=== PATIENT | female | born 1950 | race Caucasian/White ===

== ENCOUNTER 2016-12-12 00:03 | Emergency (ER) | payer MEDICARE, BC ==
--- NOTE | 2016-12-12 00:21 | Emergency Department Record ---
History of Present Illness - General Chief Complaint: Arrythmia/Palpitations Stated Complaint: afib Source: Patient Mode of Arrival: Ambulatory Limitations: No limitations - History of Present Illness Initial Comments: 66 yo female presents to ED with a CC of palpitations and irregular heart beat symptoms. Patient reports a history of atrial fibrillation s/p cardioversions x 12 and ablation x [address] Madrigal. Patient reports mild SOB symptoms, denies chest pain or discomfort. Patient also reports that she has been taking Xarelto regularly for 3 years. MD Complaint: Atrial fibrillation Onset/Timin -: Minutes(s) Context: Occurred during rest Arrythmia History: Atrial fibrillation, History of ablation, History of electrical cardioversion, On anti-coagulants Associated Symptoms: Shortness of breath - Related Data Home Medications Medication Instructions Recorded Confirmed Last Taken Biotin 1,000 mcg PO DAILY 12/12/16 12/12/16 12/12/16 Cholecalciferol (Vitamin D3) 1,000 unit PO DAILY 12/12/16 12/12/16 12/12/16 [Vitamin D3] Folic Acid 0.4 mg PO DAILY 12/12/16 12/12/16 12/12/16 Lovastatin 10 mg PO DAILY 12/12/16 12/12/16 12/12/16 Magnesium Oxide [Magnesium] 400 mcg PO DAILY 12/12/16 12/12/16 12/12/16 [place]-3 Fatty Acids [[place]-3] 500 mg PO DAILY 12/12/16 12/12/16 12/12/16 Rivaroxaban [Xarelto] 2.5 mg PO DAILY 12/12/16 12/12/16 12/12/16 Spironolactone [Aldactone] 25 mg PO DAILY 12/12/16 12/12/16 12/12/16 Allergies Allergy/AdvReac Type Severity Reaction Status Date / Time guaifenesin [From Entex LA] Allergy PT UNSURE Verified 12/12/16 00:06 OF REACTION phenylephrine [From Entex LA] Allergy PT UNSURE Verified 12/12/16 00:06 OF REACTION phenylpropanolamine Allergy PT UNSURE Verified 12/12/16 00:06 [From Entex LA] OF REACTION sulfamethoxazole Allergy PT UNSURE Verified 12/12/16 00:06 [From Bactrim] OF REACTION trimethoprim [From Bactrim] Allergy PT UNSURE Verified 12/12/16 00:06 OF REACTION Travel Screening - Travel/Exposure Within Last 30 Days Have you traveled within the last 30 days?: No - Travel Symptoms Symptom Screening: None Review of Systems Constitutional: Denies: Chills, Fever, Malaise, Night sweats Eyes: Denies: Eye discharge, Eye pain ENT: Denies: Congestion, Ear pain, Epistaxis Respiratory: Reports: Dyspnea. Denies: Cough Cardiovascular: Reports: Palpitations. Denies: Chest pain, Dyspnea on exertion Endocrine: Denies: Fatigue, Heat or cold intolerance Gastrointestinal: Denies: Abdominal pain, Nausea, Vomiting Genitourinary: Denies: Incontinence, Retention Musculoskeletal: Denies: Arthralgia, Back pain Skin: Denies: Bruising, Change in color Neurological: Denies: Abnormal gait, Confusion, Headache, Tingling, Tremors Psychiatric: Denies: Anxiety Hematological/Lymphatic: Reports: Easy bleeding. Denies: Anemia, Blood Clots Past Medical History - SOCIAL HISTORY Smoking Status: Former smoker - RESPIRATORY Hx Respiratory Disorders: No - CARDIOVASCULAR Hx Cardio Disorders: Yes Hx Cardiac Cath: Yes Hx Irregular Heartbeat: Yes (A-fib) Hx Pacemaker/Defib: No Comment:: Cardiology-Dr Bronson - NEURO Hx Neuro Disorders: No - GI Hx GI Disorders: Yes Hx Reflux: Yes - Hx Genitourinary Disorders: No - ENDOCRINE Hx Endocrine Disorders: No - MUSCULOSKELETAL Hx Musculoskeletal Disorders: No - PSYCH Hx Psych Problems: No - HEMATOLOGY/ONCOLOGY Hx Hematology/Oncology Disorders: No Family Medical History Any Significant Family History?: Yes Hx Cancer: Mother *Cancer Comment: Colon Hx Heart Disease: Father Hx HTN: Mother Physical Exam - General General Appearance: Alert, Oriented x3, Cooperative, Mild distress Limitations: No limitations - Head Head exam: Atraumatic, Normocephalic, Normal inspection Head exam detail: negative: Abrasion, Contusion, Bolanos's sign, General tenderness, Hematoma, Laceration - Eye Eye exam: Normal appearance. negative: Conjunctival injection, Periorbital swelling, Periorbital tenderness, Scleral icterus - ENT Ear exam: negative: Auricular hematoma, Auricular trauma Nasal Exam: negative: Active bleeding, Discharge, Dried blood, Foreign body Mouth exam: negative: Drooling, Laceration, Muffled voice, Tongue elevation - Neck Neck exam: Normal inspection. negative: Meningismus, Tenderness - Respiratory Respiratory exam: Normal lung sounds bilaterally. negative: Respiratory distress, Rhonchi, Stridor, Wheezes - Cardiovascular Cardiovascular Exam: Normal heart sounds, Irregular rhythm - GI/Abdominal GI/Abdominal exam: Soft. negative: Rebound, Rigid, Tenderness - Rectal Rectal exam: Deferred - exam: Deferred - Extremities Extremities exam: Normal inspection. negative: Calf tenderness, Pedal edema, Tenderness - Back Back exam: Denies: CVA tenderness (R), CVA tenderness (L) - Neurological Neurological exam: Alert, Normal gait, Oriented X3 - Psychiatric Psychiatric exam: Normal affect, Normal mood - Skin Skin exam: Normal color. negative: Abrasion Type of lesion: negative: abrasion Course Vital Signs 12/12/16 00:07 Temperature 97.5 F L Pulse Rate 77 Respiratory 20 Rate Blood Pressure 185/100 Pulse Ox 100 - Reevaluation(s) Reevaluation #1: 12/12/16 00:20 EKG: Atrial fibrillation 73 Normal axis, irregular R-R intervals ST depression I, AVL, V5-V6 Reevaluation #2: 12/12/16 01:04 Labs reviewed, INR 1.42, labs are otherwise grossly unremarkable for an acute process. [place] [phone] call contacted for consultation. Reevaluation #3: 12/12/16 01:11 Case was discussed with Dr. Arroyo, will accept transfer for further evaluation. Reevaluation #4: 12/12/16 01:56 Portable CXR: Nothing acute Medical Decision Making - Lab Data Result diagrams: 12/12/16 00:10 12/12/16 00:10 Disposition Disposition: Transfer Clinical Impression: Atrial fibrillation Qualifiers: Atrial fibrillation type: paroxysmal Qualified Code(s): I48.0 - Paroxysmal atrial fibrillation Disposition: Acute Care Hospital Transfer Transfer To: [facility] Reason For Transfer: Atrial Fibrillation Accepting Physician: Dina Time Discussed w/Accepting Physician: 01:12 Condition: (2) Stable Forms: Patient Portal Access Time of Disposition: 01:12 Quality - Quality Measures Quality Measures: N/A - Blood Pressure Screening Blood Pressure Classification: Hypertensive Reading Systolic Measurement: 185 Diastolic Measurement: 100 Screening for High Blood Pressure: < First Hypertensive BP, F/U Documented > [ G8950] First Hypertensive Follow-up Interventions: Referral to alternative/primary care provider.
[2016-12-12 00:25] LABS: BASO % 0.8 % (0-6); EOS % 3.8 % (0-6); GRAN % 46.2 % (47-80); HEMATOCRIT 37.8 % (35.0-47.0); HEMOGLOBIN 12.6 gm/dl (11.6-16.0); MEAN CELL VOLUME 90.6 fl (81-97); MEAN CORPUSCULAR HEMOGLOBIN 30.2 pg (27-33); MEAN CORPUSCULAR HGB CONC 33.3 g/dl (32-36); MEAN PLATELET VOLUME 10.5 fl (7.4-10.4); MONO % 9.2 % (0-9); PLATELET COUNT 150 K/uL (130-400); RED BLOOD COUNT 4.17 M/uL (3.80-5.40)
[2016-12-12 00:36] LABS: INR 1.42; PROTHROMBIN TIME (PATIENT) 15.4 SECONDS (9.5-12.1)
[2016-12-12 00:51] LABS: ALB/GLOB RATIO 1.4 (1.1-1.8); ALBUMIN 4.5 gm/dL (3.5-5.0); ALKALINE PHOSPHATASE 95 U/L (38-126); ALT/SGPT 30 U/L (9-52); ANION GAP 10.5 (7-16); AST/SGOT 24 U/L (14-36); BILIRUBIN,TOTAL 0.85 mg/dL (0.2-1.3); BLOOD UREA NITROGEN 19 mg/dL (7-17); CARBON DIOXIDE 27.5 mmol/L (22-30); CREATINE PHOSPHOKINASE 29 U/L (30-135); CREATININE 0.8 mg/dL (0.52-1.04); EST GLOMERULAR FILTRATION RATE > 60 ml/min; GLUCOSE,RANDOM 120 mg/dL (70-110); TOTAL PROTEIN 7.7 gm/dL (6.3-8.2)
[2016-12-12 01:03] LABS: CKMB 0.6 ug/L (0-6); TROPONIN I < 0.012 ng/mL (0.00-0.034)
--- NOTE | 2016-12-15 07:20 | RADIOLOGY REPORT ---
EXAM: PORTABLE CHEST HISTORY: PALPITATIONS. TECHNIQUE: A single mobile upright view of the chest was obtained. Comparison: None. FINDINGS: The cardiac silhouette is mildly enlarged without pulmonary venous hypertension. The lungs and pleural spaces are grossly clear. No pneumothorax. IMPRESSION: MILD CARDIOMEGALY WITHOUT PULMONARY VENOUS HYPERTENSION. NO CONVINCING EVIDENCE OF AN ACUTE PULMONARY PROCESS. JOB NUMBER: [id number] MTDD
== END 2016-12-12 02:20 | disposition short-term general hospital (02) ==
LOC: ER 00:03
DX: I48.0 Paroxysmal atrial fibrillation (principal); Z87.891 Personal history of nicotine dependence; Z79.01 Long term (current) use of anticoagulants
CPT/HCPCS: 71010; 80053; 82550; 82553; 84484; 85025; 85610; 93005; 93010; 99285

== ENCOUNTER 2017-06-15 09:08 | Emergency (ER) | payer MEDICARE, BC ==
--- NOTE | 2017-06-15 09:23 | Emergency Department Record ---
History of Present Illness - General Chief Complaint: Difficulty Breathing Stated Complaint: DIFF BREATHING Time Seen by Provider: 06/15/17 09:22 Source: Patient Mode of Arrival: Ambulatory Limitations: No limitations - History of Present Illness Initial Comments: pt has been sob since apr. she has had a course of augmentin and levaquin and still feels sob. she has a prod yellow cough. MD Complaint: Shortness of breath Onset/Timin -: Week(s) Improves With: Nothing Worsens With: Nothing Context: Recent illness Associated Symptoms: Cough, Sputum production Treatments Prior to Arrival: None - Related Data Previous Rx's Medication Instructions Recorded Azithromycin [Zithromax] 250 mg PO DAILY #6 tab 06/15/17 Allergies Allergy/AdvReac Type Severity Reaction Status Date / Time guaifenesin [From Entex LA] Allergy PT UNSURE Verified 06/15/17 09:21 OF REACTION phenylephrine [From Entex LA] Allergy PT UNSURE Verified 06/15/17 09:21 OF REACTION phenylpropanolamine Allergy PT UNSURE Verified 06/15/17 09:21 [From Entex LA] OF REACTION sulfamethoxazole Allergy PT UNSURE Verified 06/15/17 09:21 [From Bactrim] OF REACTION trimethoprim [From Bactrim] Allergy PT UNSURE Verified 06/15/17 09:21 OF REACTION Travel Screening - Travel/Exposure Within Last 30 Days Have you traveled within the last 30 days?: No - Travel/Exposure Within Last Year Have you traveled outside the [place] in the last year?: No - Additonal Travel Details Have you been exposed to anyone with a communicable illness?: No - Travel Symptoms Symptom Screening: None Review of Systems Reviewed: No additional complaints except as noted below Constitutional: Reports: As per HPI. Denies: Chills, Fever, Malaise, Night sweats, Weakness, Weight change Eyes: Reports: As per HPI. Denies: Eye discharge, Eye pain, Photophobia, Vision change ENT: Reports: As per HPI. Denies: Congestion, Dental pain, Ear pain, Epistaxis , Hearing loss, Throat pain Respiratory: Reports: As per HPI, Cough, Dyspnea. Denies: Hemoptysis, Stridor, Wheezes Cardiovascular: Reports: As per HPI. Denies: Arrhythmia, Chest pain, Dyspnea on exertion, Edema, Murmurs, Orthopnea, Palpitations, Paroxysmal nocturnal dyspnea, Rheumatic Fever, Syncope Endocrine: Reports: As per HPI. Denies: Fatigue, Heat or cold intolerance, Polydipsia, Polyuria Gastrointestinal: Reports: As per HPI. Denies: Abdominal pain, Constipation, Diarrhea, Hematemesis, Hematochezia, Melena, Nausea, Vomiting Genitourinary: Reports: As per HPI. Denies: Abnormal menses, Discharge, Dyspareunia, Dysuria, Frequency, Hematuria, Incontinence, Retention, Urgency Musculoskeletal: Reports: As per HPI. Denies: Arthralgia, Back pain, Gout, Joint swelling, Myalgia, Neck pain Skin: Reports: As per HPI. Denies: Bruising, Change in color, Change in hair/ nails, Lesions, Pruritus, Rash Neurological: Reports: As per HPI. Denies: Abnormal gait, Confusion, Headache, Numbness, Paresthesias, Seizure, Tingling, Tremors, Vertigo, Weakness Psychiatric: Reports: As per HPI. Denies: Anxiety, Auditory hallucinations, Depression, Homicidal thoughts, Suicidal thoughts, Visual hallucinations Hematological/Lymphatic: Reports: As per HPI. Denies: Anemia, Blood Clots, Easy bleeding, Easy bruising, Swollen glands Past Medical History - SOCIAL HISTORY Smoking Status: Former smoker Alcohol Use: None Drug Use: None - RESPIRATORY Hx Respiratory Disorders: Yes Hx Bronchitis: Yes - CARDIOVASCULAR Hx Cardio Disorders: Yes Hx Cardiac Cath: Yes Hx Irregular Heartbeat: Yes (A-fib) Hx Pacemaker/Defib: No Comment:: Cardiology-Dr Bronson - NEURO Hx Neuro Disorders: No - GI Hx GI Disorders: Yes Hx Reflux: Yes - Hx Genitourinary Disorders: No - ENDOCRINE Hx Endocrine Disorders: No - MUSCULOSKELETAL Hx Musculoskeletal Disorders: No - PSYCH Hx Psych Problems: No - HEMATOLOGY/ONCOLOGY Hx Hematology/Oncology Disorders: No Family Medical History Any Significant Family History?: No Hx Cancer: Mother *Cancer Comment: Colon Hx Heart Disease: Father Hx HTN: Mother Physical Exam - General General Appearance: Alert, Oriented x3, Cooperative, Mild distress - Head Head exam: Normal inspection - Eye Eye exam: Normal appearance, PERRL, EOMI Pupils: Normal accommodation - ENT ENT exam: Normal exam, Mucous membranes moist, Normal external ear exam, Normal orophraynx Ear exam: Normal external inspection. negative: External canal tenderness Nasal Exam: Normal inspection. negative: Discharge, Sinus tenderness Mouth exam: Normal external inspection, Tongue normal Teeth exam: Normal inspection. negative: Dental caries Throat exam: Normal inspection. negative: Tonsillar erythema, Tonsillar exudate - Neck Neck exam: Normal inspection, Full ROM. negative: Tenderness - Respiratory Respiratory exam: Normal lung sounds bilaterally. negative: Respiratory distress - Cardiovascular Cardiovascular Exam: Regular rate, Normal rhythm, Normal heart sounds - GI/Abdominal GI/Abdominal exam: Soft, Normal bowel sounds. negative: Tenderness - Rectal Rectal exam: Deferred - exam: Deferred - Extremities Extremities exam: Normal inspection, Full ROM, Normal capillary refill. negative: Tenderness - Back Back exam: Reports: Normal inspection, Full ROM. Denies: Muscle spasm, Rash noted, Tenderness - Neurological Neurological exam: Alert, CN II-XII intact, Normal gait, Oriented X3 - Psychiatric Psychiatric exam: Normal affect, Normal mood - Skin Skin exam: Dry, Intact, Normal color, Warm Course Vital Signs 06/15/17 09:11 Temperature 97.9 F Pulse Rate 72 Respiratory 18 Rate Blood Pressure 129/77 Pulse Ox 98 Medical Decision Making - Lab Data Result diagrams: 06/15/17 09:49 06/15/17 09:49 Disposition Disposition: Discharge Clinical Impression: Bronchitis Disposition: Home, Self-Care Condition: (1) Good Instructions: Dyspnea (ED), Acute Bronchitis (ED) Additional Instructions: follow up with family doctor. return sooner if worse. Prescriptions: Azithromycin [Zithromax] 250 mg PO DAILY #6 tab Forms: Patient Portal Access Quality - Quality Measures Quality Measures: N/A - Blood Pressure Screening Does Patient Have Any of the Following: No Blood Pressure Classification: Pre-Hypertensive BP Reading Systolic Measurement: 129 Diastolic Measurement: 77 Screening for High Blood Pressure: < Pre-Hypertensive BP, F/U Documented > [ G8950] Pre-Hypertensive Follow-up Interventions: Follow-up with rescreen every year.
[2017-06-15] MEDS ORDERED: METHYLPREDNISOLONE PF 125MG/VIAL IVP ONE (09:28)
[2017-06-15 09:53] LABS: HEMATOCRIT 39.1 % (35.0-47.0); HEMOGLOBIN 12.7 gm/dl (11.6-16.0); MEAN CELL VOLUME 93.3 fl (81-97); MEAN CORPUSCULAR HEMOGLOBIN 30.3 pg (27-33); MEAN CORPUSCULAR HGB CONC 32.5 g/dl (32-36); MEAN PLATELET VOLUME 10.6 fl (7.4-10.4); PLATELET COUNT 169 K/uL (130-400); RED BLOOD COUNT 4.19 M/uL (3.80-5.40)
[2017-06-15 10:05] LABS: PLATELET ESTIMATE NORMAL (NORMAL)
[2017-06-15 10:08] LABS: BLOOD UREA NITROGEN 9 mg/dL (8-23); CREATININE 0.7 mg/dL (0.5-0.9); EST GLOMERULAR FILTRATION RATE > 60 mL/min
[2017-06-15 10:09] LABS: TOTAL PROTEIN 7.7 g/dL (6.6-8.7)
[2017-06-15 10:11] LABS: GLUCOSE,RANDOM 101 mg/dL (74-109)
[2017-06-15 10:13] LABS: ALT/SGPT 9 U/L (<33)
[2017-06-15 10:14] LABS: ALB/GLOB RATIO 1.2 (1.1-1.8); ALBUMIN 4.2 g/dL (4.0-5.0); ALKALINE PHOSPHATASE 72 U/L (35-104); AST/SGOT 15 U/L (10.0-35.0)
[2017-06-15 11:19] LABS: INFLUENZA A NEGATIVE (NEGATIVE); INFLUENZA B NEGATIVE (NEGATIVE)
--- NOTE | 2017-06-15 14:20 | RADIOLOGY REPORT ---
EXAM: CHEST, TWO VIEWS HISTORY: SEVERE COUGH. SHORTNESS OF BREATH. TECHNIQUE: Upright PA and lateral views of the chest were obtained. Comparison: Two view chest radiographic examination dated 05/27/17. FINDINGS: The heart remains enlarged, unchanged. No pulmonary venous hypertension is visualized. No new lung consolidation. Minimal linear atelectasis now questioned in the lateral left lung base. Minor biapical lung scarring. The lungs and pleural spaces are otherwise clear. There are mild degenerative end plate changes scattered throughout the visualized spine. The aortic knob is atherosclerotic. IMPRESSION: 1. STABLE CARDIOMEGALY WITHOUT PULMONARY VENOUS HYPERTENSION. 2. MINOR NEW LINEAR ATELECTASIS SUGGESTED IN THE LATERAL LEFT LUNG BASE. THE LUNGS ARE OTHERWISE STABLE IN APPEARANCE. JOB NUMBER: [id number] MTDD
== END 2017-06-15 11:38 | disposition home or self-care (01) ==
LOC: ER 09:08
DX: J20.9 Acute bronchitis, unspecified (principal); R06.02 Shortness of breath; I48.91 Unspecified atrial fibrillation; Z87.891 Personal history of nicotine dependence
CPT/HCPCS: 71046; 80053; 83880; 85027; 85379; 87400; 96374; 99284; J2930